=== PATIENT | female | born 1985 | race Caucasian/White ===

== ENCOUNTER 2023-04-14 21:31 | Inpatient (IN) ==
[2023-04-14] MEDS ORDERED: Lactated Ringers 1000 ml BAG 1,000 ML IV ONE (23:04)
[2023-04-14] MEDS ORDERED: Penicillin G Potassium IV 5,000,000 UNITS in NS 0.9% 100 ml BAG 100 ML IVPB ONE (23:04)
[2023-04-14] MEDS ORDERED: Buffered Lidocaine 1% SYRIN 1 ml INTRADERM ONE (23:04)
[2023-04-14] MEDS ORDERED: Lactated Ringers 1000 ml BAG 1,000 ML IV SCH (23:45)
[2023-04-14 23:47] LABS: ABS Eosinophils 0.1 10^3/uL (0.0-0.5); ABS Lymphocytes 1.6 10^3/uL (1.0-4.8); ABS Monocytes 0.6 10^3/uL (0.0-0.9); ABS Neutrophils 8.2 10^3/uL (1.5-7.6); ABS Nucleated RBC 0.02 10^3/ul; Eosinophil % 0.5 %; Hematocrit 32.6 % (35-45); Hemoglobin 10.8 g/dL (11.5-14.3); Lymphocyte % 15.1 %; Mean Corpuscular Hemoglobin 26.9 pg (27-33); Mean Corpuscular Hgb Conc 33.1 g/dL (31-36); Mean Corpuscular Volume 81.3 fL (80-97); Mean Platelet Volume 11.4 fL (7.5-11.2); Nucleated Red Blood Cells % 0.2 /100 WBC (0.0-0.4); Platelet Count 178 10^3/uL (150-450); Red Cell Distribution Width 16.9 % (12-17); White Blood Count 10.4 10^3/uL (3.8-11.8)
[2023-04-15 00:01] LABS: Urine Benzodiazepine Screen None Detected (None Detect); Urine Cannabinoids Screen None Detected (None Detect); Urine Opiates Screen None Detected (None Detect)
[2023-04-15] MEDS ORDERED: Morphine 10 MG/ML VIAL (1 ml) IV ONE (02:17)
[2023-04-15] MEDS ORDERED: Promethazine INJ(RESTRICTED) 25 MG/ML 1 ml VIAL IV PRN (02:17)
[2023-04-15] MEDS: Penicillin G Potassium IV 3,000,000 UNITS in NS 0.9% 100 ml BAG 100 ML IVPB SCH ×2 (03:59→10:25)
[2023-04-15] MEDS ORDERED: Oxytocin in LR 20,000 MILLI.UNIT/1,000 ML BAG IV ONE (05:10)
[2023-04-15] MEDS ORDERED: Varicella Virus Vaccine Live 0.5 ML VIAL SUBCUT ONE (05:51)
[2023-04-15] MEDS ORDERED: Witch Hazel PAD JAR TOPICAL PRN (05:51)
[2023-04-15] MEDS ORDERED: Measles, Mumps,Rubella VACC 0.5 ML/VIAL SUBCUT ONE (05:51)
[2023-04-15] MEDS ORDERED: Dibucaine 1% OINT 28.35 GM TUBE PR PRN (05:51)
[2023-04-15] MEDS ORDERED: Glycerin ADULT 2.4 gm SUPP PR PRN (05:51)
[2023-04-15] MEDS ORDERED: RHO D Immune Globulin (HUMAN) 300 MCG = 1,500 I.U. INJ IM ONE (07:54)
[2023-04-16 06:13] LABS: ABS Eosinophils 0.1 10^3/uL (0.0-0.5); ABS Lymphocytes 2.1 10^3/uL (1.0-4.8); ABS Monocytes 0.6 10^3/uL (0.0-0.9); ABS Neutrophils 9.5 10^3/uL (1.5-7.6); Eosinophil % 0.9 %; Hematocrit 25.7 % (35-45); Hemoglobin 8.5 g/dL (11.5-14.3); Lymphocyte % 16.9 %; Mean Corpuscular Hemoglobin 27.4 pg (27-33); Mean Corpuscular Hgb Conc 32.8 g/dL (31-36); Mean Corpuscular Volume 83.3 fL (80-97); Mean Platelet Volume 10.8 fL (7.5-11.2); Platelet Count 174 10^3/uL (150-450); Red Blood Count 3.09 10^6/uL (3.63-4.92); Red Cell Distribution Width 17.4 % (12-17); White Blood Count 12.4 10^3/uL (3.8-11.8)
[2023-04-16] MEDS ORDERED: Pramoxine/Zinc Oxide CREAM 30 GM PR PRN (09:50)
[2023-04-16] MEDS ORDERED: Lidocaine PATCH 4% 1 EA TOPICAL ONE (12:32)
[2023-04-16] MEDS: Hemorrhoidal OINT 1 TUBE PR PRN ×2 (16:30→22:50)
[2023-04-17 07:41] VITALS: BP 87/52
== END 2023-04-17 12:54 | disposition home or self-care (01) | DRG 560 ==
LOC: MCHOBOUT 21:31 → MCHOB 22:10
PROVIDERS: ADMIT Midwife; ATTEND Midwife